=== PATIENT | male | born 1955 | race Caucasian/White ===

== ENCOUNTER 2016-10-31 19:13 | Emergency (ER) | payer MEDICAID ==
[2016-10-31 19:36] VITALS: BP 128/105; PULSE 102; RESP 16; TEMP 98.1; O2SAT 95
--- NOTE | 2016-10-31 19:37 | UCPHY ---
H & P Time Seen by Provider: 10/31/16 19:22 Patient Type: Established HPI/ROS: This patient complains of left eye discharge and mild redness. Over the past 10 days he had antecedent nasal congestion that persists but is improving. An occasional cough at the beginning of this illness that has resolved. The onset of the eye symptoms started this afternoon. He reports the symptoms are mild with slight itching but no discomfort. ROS: No fevers. No trauma to the eye. No visual changes. No facial pain. 5 point ROS is otherwise negative Past Medical/Surgical History: Mild asthma otherwise healthy Smoking Status: Never smoked Physical Exam: Physical Exam Vital signs are normal. General: No acute distress HEENT: Nose: Clear discharge. No sinus tenderness to percussion. Oropharynx is clear with no dysphonia, erythema or exudates. Ears: External canals and TMs clear bilaterally. Eyes: Pupils equal and react to light. Extraocular motions are intact. Mild conjunctival injection is present to the left eye with no active discharge. Lids and lashes are normal. Lungs: Clear to auscultation bilaterally with no rales rhonchi or wheeze. No respiratory distress. Cardiac: Regular rate and rhythm with no murmur gallop or rub Skin: No rash or pallor. Neuro: Alert Initial differential diagnosis: Viral URI, viral conjunctivitis versus bacterial conjunctivitis, doubt bacterial sinusitis Constitutional: Initial Vital Signs Temperature (C) 36.7 C 10/31/16 19:25 Heart Rate 102 H 10/31/16 19:25 Respiratory Rate 16 10/31/16 19:25 Blood Pressure 128/105 H 10/31/16 19:25 O2 Sat (%) 95 10/31/16 19:25 O2 Delivery Mode Room Air Allergies/Adverse Reactions: No Known Allergies Allergy (Verified 10/31/16 19:33) Home Medications: Medication Instructions Recorded Advair 03/07/16 Albuterol Hfa Anes Only 10/31/16 Fluticasone Nasal [Flonase Nasal 2 sprays NASAL DAILY #1 mdi 10/31/16 [place] (RX)] Ofloxacin 0.3% [Ocuflox 0.3% (RX)] 2 drops EACHEYE Q1 #1 btl 10/31/16 Departure - Departure Disposition: Home, Routine, Self-Care Clinical Impression: Viral upper respiratory infection Conjunctivitis Qualifiers: Conjunctivitis type: acute Acute conjunctivitis type: bacterial Laterality: left Qualified Code(s): H10.32 - Unspecified acute conjunctivitis, left eye Condition: Good Instructions: Conjunctivitis (ED) Additional Instructions: Diagnoses: 1. Conjunctivitis 2. Viral upper respiratory infection ("a cold") Plan: Flonase steroid nasal spray for nasal congestion if needed Humidifier Ocuflox antibiotic drops to I and frequent hand cleaning as described. No work tomorrow. Return for any significant worsening despite treatment plan Referrals: NONE *PRIMARY CARE P,. [Primary Care Provider] - As per Instructions Prescriptions: Fluticasone Nasal [Flonase Nasal [place] (RX)] 2 sprays NASAL DAILY #1 mdi Ofloxacin 0.3% [Ocuflox 0.3% (RX)] 2 drops EACHEYE Q1 #1 btl - PQRS PQRS Measurement: NA
== END 2016-10-31 20:03 | disposition home or self-care (01) ==
LOC: CED 19:13
DX: H10.32 Unspecified acute conjunctivitis, left eye (principal); J06.9 Acute upper respiratory infection, unspecified
CPT/HCPCS: 99214-PO; G0463-PO